=== PATIENT | female | born 1955 | race Caucasian/White ===

== ENCOUNTER 2018-01-21 07:05 | Outpatient (CLI) | payer BC ==
[2018-01-21] VITALS (21 sets, daily range): BP systolic 109–156; BP diastolic 57–106; PULSE 61–78; TEMP 98.5
[~2018-01-21] VITALS: Ht 165.1 cm; Wt 89.5 kg
[~2018-01-21 07:05] MED LIST: 00186-0370-20 IH; BENADRYL25 M2; CALCIUM PO; FIBER0.52 GM PO; GLUCOSAMINE PO; NATURE'S BLEND600 M2 PO; RT ALBUTER2.5 MG/0.5 IH; RT SPIRIVA18 MCG IH; SINGULAIR 110 MG/TAB PO; VENTOLIN0.09 MG IH; [UNRECOGNIZED DRUG - OTHER] PO
[2018-01-21] MEDS ORDERED: CLARITIN 1010 MG/TAB PO (07:18)
[2018-01-21] MEDS ORDERED: TYLENOL 8 HR PO (07:21)
== END 2018-01-21 17:23 | disposition home or self-care (01) ==
LOC: COL.RAD 07:05
DX: C7A.1 Malignant poorly differentiated neuroendocrine tumors (principal)

== ENCOUNTER → 2022-09-10 | Outpatient (CLI) | payer MEDICARE ==
[~2022-09-10] MED LIST changes: +CLARITIN 1010 MG/TAB PO; +TYLENOL 8 HR PO
== END ==
LOC: COL.RAD 12:38
DX: N28.1 Cyst of kidney, acquired (principal); K80.20 Calculus of gallbladder without cholecystitis without obstruction
CPT/HCPCS: Q9967